=== PATIENT | male | born 1940 | race Caucasian/White ===

== ENCOUNTER 2019-12-27 08:03 | Outpatient (CLI) | payer BC, MEDICARE ==
--- NOTE | 2019-12-27 14:24 | MRI ---
MRI OF THE PROSTATE WITHOUT AND WITH CONTRAST: HISTORY: Prostate cancer with recent biopsy on November 22. PSA of 26.65. TECHNIQUE: Multiplanar, multisequence MR images were obtained of the prostate without and with IV contrast. FINDINGS: There is mild hypertrophy of the central gland consistent with BPH. Prostate volume is estimated at 43 mL. There is extensive high T1 signal in the peripheral zone of the prostate consistent with blood produc ts from recent biopsy. This limits evaluation of the peripheral zone in the prostate. However, ther e is a suspicious low T2 signal lesion in the left aspect of the prostate near the base measuring 2.4 cm in greatest dimension. This abuts the prostate capsule over a length of approximately 1.7 cm. T his lesion demonstrates restricted diffusion and low signal on the ADC map. The left neurovascular b undle is in the near vicinity of this lesion. The right neurovascular bundle is not in the vicinity of the prostate lesion in the left aspect of th e prostate. The seminal vesicles are intact. No pelvic adenopathy is seen. Scattered diverticula are seen in the colon. There is a slightly heterogeneous appearance of the marrow signal; however, no abnormal areas of enha ncement are seen within the marrow. This heterogeneous appearance is inconclusive for potential meta static disease. IMPRESSION: PIRADS category 5 - very high likelihood that a clinically significant cancer is present. There is l ikely extra-prosthetic extension along the left with the left neurovascular bundle in the near vicini ty. There is also questionable marrow signal abnormality and a bone scan is recommended to evaluate for osseous metastatic disease.
--- NOTE | 2019-12-27 14:34 | NM ---
Radionucleotide bone scan HISTORY: Prostate cancer. Initial staging. 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 No pathologic areas of radiotracer uptake are apparent. Pubic symphysis and lower sacrum partially ob scured by bladder uptake. IMPRESSION : No scintigraphic evidence of skeletal metastasis.
== END 2019-12-27 08:04 | disposition home or self-care (01) ==
LOC: TBSIIMAG 08:03 → NM 08:04
PROVIDERS: ATTEND Urology
DX: C61 Malignant neoplasm of prostate (principal)
CPT/HCPCS: 72197; 78306; 82565; A9503

== ENCOUNTER 2021-12-19 07:55 | Outpatient (CLI) | payer MEDICARE, OTHER ==
[2021-12-19] MEDS ORDERED: Iopamidol 370 76% 100 ML VIAL ONE (08:21)
== END 2021-12-19 07:56 | disposition home or self-care (01) ==
LOC: CT 07:55
PROVIDERS: ATTEND Urology
DX: C61 Malignant neoplasm of prostate (principal)
CPT/HCPCS: 74178; 78306; 82565; A9503

== ENCOUNTER 2022-01-09 09:32 | Outpatient (CLI) | payer MEDICARE, OTHER | END 2022-01-09 09:33 | disposition home or self-care (01) | LOC: SCSMRI 09:32 | PROVIDERS: ATTEND Family Medicine | DX: M48.061 Spinal stenosis, lumbar region without neurogenic claudication (principal); M47.816 Spondylosis without myelopathy or radiculopathy, lumbar region | CPT/HCPCS: 72148 ==

== ENCOUNTER 2022-01-12 08:17 | Outpatient (CLI) | payer MEDICARE, OTHER | END 2022-01-12 08:18 | disposition home or self-care (01) | LOC: SCSMRI 08:17 | PROVIDERS: ATTEND Family Medicine | DX: M54.6 Pain in thoracic spine (principal) | CPT/HCPCS: 72146 ==

== ENCOUNTER 2022-03-03 12:41 | Outpatient (CLI) | payer MEDICARE, OTHER | END 2022-03-03 12:42 | disposition home or self-care (01) | LOC: TBSIIMAG 12:41 | PROVIDERS: ATTEND Family Medicine | DX: S22.080G Wedge compression fracture of T11-T12 vertebra, subsequent encounter for fracture with delayed healing (principal); M47.24 Other spondylosis with radiculopathy, thoracic region | CPT/HCPCS: 72146; 72148 ==

== ENCOUNTER 2022-03-16 10:22 | Outpatient (CLI) | payer MEDICARE, OTHER | END 2022-03-16 10:23 | disposition home or self-care (01) | LOC: BICMAMMO 10:22 | PROVIDERS: ATTEND Family Medicine | DX: Z13.820 Encounter for screening for osteoporosis (principal); M81.0 Age-related osteoporosis without current pathological fracture | CPT/HCPCS: 77080 ==

== ENCOUNTER 2023-07-21 08:07 | Outpatient (CLI) | payer MEDICARE, OTHER ==
[2023-07-21] MEDS ORDERED: Iopamidol 370 76% 100 ML VIAL ONE (09:05)
== END 2023-07-21 08:08 | disposition home or self-care (01) ==
LOC: NM 08:07
PROVIDERS: ATTEND Urology
DX: C61 Malignant neoplasm of prostate (principal); M43.9 Deforming dorsopathy, unspecified
CPT/HCPCS: 74178; 78306; A9503; Q9967

== ENCOUNTER 2025-02-27 07:41 | Outpatient (CLI) | payer MEDICARE, OTHER | END 2025-02-27 07:42 | disposition home or self-care (01) | LOC: BICMAMMO 07:41 | PROVIDERS: ATTEND Internal Medicine | DX: M81.8 Other osteoporosis without current pathological fracture (principal); M85.88 Other specified disorders of bone density and structure, other site | CPT/HCPCS: 77080 ==

== ENCOUNTER 2025-03-05 08:40 | Outpatient (CLI) | payer MEDICARE, OTHER ==
[2025-03-05 09:27] LABS: Estimated GFR - POC 60.0
[2025-03-05] MEDS ORDERED: Iopamidol 370 76% 100 ML VIAL ONE (10:09)
== END 2025-03-05 08:41 | disposition home or self-care (01) ==
LOC: CT 08:40
PROVIDERS: ATTEND Internal Medicine
DX: M81.8 Other osteoporosis without current pathological fracture (principal); C61 Malignant neoplasm of prostate
CPT/HCPCS: 36415; 71260; 74177; 78306; 82565 ×2; A9503